=== PATIENT | female | born 1945 | race Two or more races ===

== ENCOUNTER 2016-10-29 12:47 | Inpatient (IN) | payer MEDICARE, MEDICAID ==
--- NOTE | 2016-10-29 12:56 | ER Document Report ---
ED Medical Screen (RME) - General Stated Complaint: WEAKNESS ON RIGHT SIDE Notes: 71 yo female brought to ED by daughter for limping and right sided weakness. pt has hx/o brain tumor, DM, hypothyroid, high cholesterol. Last time normal 2100 last night. no facial droop. + right sided weakness. + hx/o stroke. no chest pain. no shortness of breath. no headache TRAVEL OUTSIDE OF THE [place] IN LAST 30 DAYS: No - Related Data Allergies/Adverse Reactions: No Known Allergies Allergy (Verified 10/29/16 12:55)
[2016-10-29 13:49] LABS: ABSOLUTE BASOPHILS # (AUTO) 0.1 10^3/uL (0.0-0.2); ABSOLUTE EOSINOPHILS # (AUTO) 0.1 10^3/uL (0.0-0.6); ABSOLUTE LYMPHOCYTES (AUTO) 1.7 10^3/uL (0.5-4.7); ABSOLUTE MONOCYTES (AUTO) 0.7 10^3/uL (0.1-1.4); ABSOLUTE NEUT (AUTO) 5.7 10^3/uL (1.7-8.2); BASOPHILS % (AUTO) 0.7 % (0-2); EOSINOPHILS % (AUTO) 1.7 % (0-6); HEMATOCRIT 45.7 % (36.0-47.0); HEMOGLOBIN 15.8 g/dL (12.0-15.5); HGB HCT DIFFERENCE 1.7; LYMPHOCYTES % (AUTO) 20.2 % (13-45); MEAN CORPUSCULAR HEMOGLOBIN 31.6 pg (27.0-33.4); MEAN CORPUSCULAR HGB CONC 34.7 g/dL (32.0-36.0); MEAN CORPUSCULAR VOLUME 91 fl (80-97); RED BLOOD COUNT 5.01 10^6/uL (3.72-5.28); RED CELL DISTRIBUTION WIDTH 13.2 % (11.5-14.0); SEGMENTED NEUTROPHILS % (AUTO) 69.4 % (42-78); WHITE BLOOD COUNT 8.2 10^3/uL (4.0-10.5)
[2016-10-29 14:05] LABS: ALANINE AMINOTRANSFERASE 34 U/L (9-52); ALBUMIN 4.8 g/dL (3.5-5.0); ALKALINE PHOSPHATASE 74 U/L (38-126); ANION GAP 14 (5-19); ASPARTATE AMINO TRANSFERASE 17 U/L (14-36); BILIRUBIN,TOTAL 0.6 mg/dL (0.2-1.3); BLOOD UREA NITROGEN 10 mg/dL (7-20); CALCIUM 10.2 mg/dL (8.4-10.2); CARBON DIOXIDE 28 mmol/L (22-30); CHLORIDE 101 mmol/L (98-107); CREATINE KINASE 26 U/L (30-135); CREATININE RESULT 0.57 mg/dL (0.52-1.25); GLUCOSE 249 mg/dL (75-110); POTASSIUM 4.9 mmol/L (3.6-5.0); SODIUM 143.2 mmol/L (137-145); TOTAL PROTEIN 7.7 g/dL (6.3-8.2)
--- NOTE | 2016-10-29 14:07 | ER Document Report ---
ED General - General Chief Complaint: Weakness Stated Complaint: WEAKNESS ON RIGHT SIDE Time seen by provider: 13:40 Mode of Arrival: Wheelchair Information source: Patient, Relative Notes: 71-year-old female was evaluated with assistance of daughter who speaks excellent Vietnamese the patient would have difficulty cooperating with the rest route sales specialist due to confusion. Daughter reports patient has had weakness to the right lower extremity and right upper extremity with an inability to stand beginning last night. He reports patient has had no change in her speech. She reports the patient has a history of a brain tumor with residual drooping to the right face and dilated right pupil those findings are not new in the patient. The patient according to daughter was evaluated by [facility] for brain tumor in August and the personnel there were going to discuss her case to get back to her but they have not yet done so. The patient arrives with an MRI on disc from [facility] and notes on that indicate that the patient was evaluated there for dizziness and blurry vision but that the symptoms had resolved at this time she was evaluated there. She has a documented neuro exam with no numbness weakness to any extremity on that visit. Daughter reports the patient has otherwise been in usual state of health recently Physical Exam: General: Alert, appears well. HEENT: Normocephalic. Atraumatic. Right pupil 4 mm round minimally reactive left pupil is 3 mm round and reactive to sharp no papilledema sclerae anicteric. Extraocular movements intact. Oropharynx clear. Neck: Supple. Non-tender. No JVD no nuchal rigidity Respiratory: No respiratory distress. Clear and equal breath sounds bilaterally. Cardiovascular: Regular rate and rhythm. PMI not displaced Abdominal: Normal Inspection. Soft, non-tender. No distension. Normal Bowel Sounds. Back: Non-tender. No deformity or step off. Extremities: No gross deformity to extremities all warm with 2+ pulses and brisk cap refill no Homans sign Neurological: Patient is drooping to the right upper face. Tongue protrusion is midline no other cranial nerve deficits are appreciated. Communications Instructor strength is 5 out of 5 and equal in both upper extremity. Motor function is 5 out of 5 to left lower extremity compared to 3 out of 5 to the right lower extremity. Psychological: Normal affect. Normal Mood. Skin: Warm. Dry. Normal color.m TRAVEL OUTSIDE OF THE [place] 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 Patient also had an admission in May 2015 for CVA and had no residual deficits from that. This was in [place]. Review of Systems - Review of Systems Constitutional: denies: Chills, Fever EENT: denies: Ear pain, Throat pain Cardiovascular: denies: Chest pain Respiratory: denies: Cough, Short of breath Gastrointestinal: denies: Abdominal pain, Nausea, Vomiting Genitourinary: denies: Burning, Dysuria Musculoskeletal: denies: Back pain Hematologic/Lymphatic: denies: Swollen glands Neurological/Psychological: Weakness Physical Exam - Vital signs Vitals: Temp Pulse Resp BP Pulse Ox 98.4 F 90 13 156/69 H 100 10/29/16 12:50 10/29/16 12:50 10/29/16 12:50 10/29/16 12:50 10/29/16 12:50 Course - Re-evaluation Re-evalutation: 10/29/16 14:48 Patient reevaluated and again has 3-5 motor dysfunction to the right lower extremity compared to 5 out of 5 on the left and intact motor function both upper extremities. Right facial droop is unchanged. CT findings show nothing acute they do note the old right parietal postsurgical changes. I believe the patient's had an ischemic CVA and she was given full dose aspirin for that and consult with hospitalist for admission - Vital Signs Vital signs: Temp Pulse Resp BP Pulse Ox 98.4 F 90 13 156/69 H 100 10/29/16 12:50 10/29/16 12:50 10/29/16 12:50 10/29/16 12:50 10/29/16 12:50 - Laboratory Result Diagrams: 10/29/16 13:25 10/29/16 13:25 Laboratory results interpreted by me: 10/29/16 10/29/16 10/29/16 13:25 13:25 13:40 Hgb 15.8 H Glucose 249 H Creatine Kinase 26 L Urine Glucose (UA) >=500 H Urine Ketones TRACE H Urine Ascorbic Acid 40 H - Diagnostic Test Radiology reviewed: Reports reviewed - EKG Interpretation by Me Additional EKG results interpreted by me: 10/29/16 14:08 EKG reviewed by myself sinus rhythm at 83 no acute changes Discharge - Discharge Clinical Impression: CVA (cerebral vascular accident) Qualifiers: CVA mechanism: unspecified Qualified Code(s): I63.9 - Cerebral infarction, unspecified Condition: Fair Disposition: ADMITTED INPATIENT Admitting Provider: Hospitalist Unit Admitted: Telemetry
[2016-10-29 14:13] LABS: APPEARANCE,URINE CLEAR; BILIRUBIN,URINE NEGATIVE (NEGATIVE); GLUCOSE, URINE >=500 mg/dL (NEGATIVE); KETONES,URINE TRACE mg/dL (NEGATIVE); LEUKOCYTE ESTERASE,URINE NEGATIVE (NEGATIVE); NITRITE,URINE NEGATIVE (NEGATIVE); PROTEIN,URINE NEGATIVE (NEGATIVE); URINE SPECIFIC GRAVITY 1.013; UROBILINOGEN,URINE NEGATIVE mg/dL (<2.0)
[2016-10-29 14:17] LABS: CREATINE KINASE MB 0.69 ng/mL (<4.55)
[2016-10-29 14:18] LABS: TROPONIN I < 0.012 ng/mL
[2016-10-29] MEDS ORDERED: ASPIRIN 325 MG TABLET PO ONE (14:45)
[2016-10-29] MEDS ORDERED: ACETAMINOPHEN 325 MG TABLET PO PRN (15:29)
[2016-10-29] MEDS ORDERED: ONDANSETRON HCL INJ/PF 4 MG/2 ML SDV IV PRN (15:29)
[2016-10-29] MEDS ORDERED: DEXTROSE 50%-WATER 25 GM/50 ML DISP.SYRIN IV PRN ×2 (16:08)
[2016-10-29] MEDS ORDERED: DEXTROSE 40% GEL 15 GM TUBE PO PRN ×2 (16:08)
[2016-10-29] MEDS ORDERED: GLUCAGON,HUMAN RECOMB 1 MG INJ IM PRN (16:08)
[2016-10-29] MEDS ORDERED: ENOXAPARIN SODIUM INJ 40 MG/0.4 ML DISP.SYRIN SUBCUT ONE (17:00)
--- NOTE | 2016-10-29 17:58 | PDOC H&P ---
History of Present Illness Admission Date/PCP: CRISTIN GARVIN Patient complains of: Right leg weakness History of Present Illness: BRAD MTZ is a 71 year old female who has a history of a benign brain tumor surgically removed 25 years ago from her right sikh area who presents with right leg weakness. The patient is a Macanese who is here with her daughter and both speak Ecuadorean well. The patient reports that yesterday evening around 9 PM she was having difficulty ambulating. She went to bed and when she woke up this morning she was still weak in her right leg. Patient denies any right arm weakness. There was some questionable weakness in her right arm according to the daughter, however the patient denies it. She also has had some dysarthria. The patient has a history of a benign brain tumor removal 25 years ago. Patient has a chronically dilated right pupil because of this. The patient also has had problems with decreased memory and rambling speech that has gotten progressively worse over the last year according to the daughter. The patient is alert and oriented 3 however she is slow to answer questions and does have tangential thinking. Past Medical History Cardiac Medical History: Reports: Hyperlipidema, Hypertension Pulmonary Medical History: Reports: None EENT Medical History: Reports: None Neurological Medical History: Reports: Other - History of benign brain tumor removed 25 years ago from the right temporal area Endocrine Medical History: Reports: Diabetes Mellitus Type 2 Renal/ Medical History: Reports: None Malignancy Medical History: Reports: None GI Medical History: Reports: None Musculoskeltal Medical History: Reports: None Skin Medical History: Reports: None Traumatic Medical History: Reports: None Hematology: Reports: None Infectious Medical History: Reports: None Past Surgical History Past Surgical History: Reports: Other - History of right craniotomy for a benign brain tumor 25 years ago. Social History Information Source: Patient Lives with: Family Smoking Status: Never Smoker Frequency of Alcohol Use: None Hx Recreational Drug Use: No Drugs: None - Advance Directive Resuscitation Status: Do Not Resuscitate Family History Family History: DM, Hypertension Family History: Mother at age 26 from unspecified causes. Father in his 70s from throat cancer. Parental Family History Reviewed: Yes Children Family History Reviewed: No Sibling(s) Family History Reviewed.: No Medication/Allergy Allergies/Adverse Reactions: No Known Allergies Allergy (Verified 10/29/16 12:55) Review of Systems Constitutional: ABSENT: chills, fever(s), headache(s), weight gain, weight loss Eyes: PRESENT: other - Chronically dilated right pupil. ABSENT: visual disturbances Ears: ABSENT: hearing changes Cardiovascular: ABSENT: chest pain, dyspnea on exertion, edema, orthropnea, palpitations Respiratory: ABSENT: cough, hemoptysis Gastrointestinal: ABSENT: abdominal pain, constipation, diarrhea, hematemesis, hematochezia, nausea, vomiting Genitourinary: ABSENT: dysuria, hematuria Musculoskeletal: ABSENT: joint swelling Integumentary: ABSENT: rash, wounds Neurological: PRESENT: abnormal speech, memory loss, weakness - Right leg weakness Psychiatric: PRESENT: other - Tangential speech Endocrine: ABSENT: cold intolerance, heat intolerance, polydipsia, polyuria Hematologic/Lymphatic: ABSENT: easy bleeding, easy bruising Physical Exam Vital Signs: Temp Pulse Resp BP Pulse Ox 98.4 F 90 13 156/69 H 100 10/29/16 12:50 10/29/16 12:50 10/29/16 12:50 10/29/16 12:50 10/29/16 12:50 Intake & Output 10/28/16 10/29/16 10/30/16 06:59 06:59 06:59 Weight 53 kg General appearance: PRESENT: no acute distress Head exam: PRESENT: atraumatic, normocephalic Eye exam: PRESENT: conjunctiva pink, EOMI, PERRLA. ABSENT: scleral icterus Ear exam: PRESENT: normal external ear exam Mouth exam: PRESENT: moist, tongue midline Neck exam: ABSENT: carotid bruit, JVD, lymphadenopathy, thyromegaly Respiratory exam: PRESENT: clear to auscultation yue. ABSENT: rales, rhonchi, wheezes Cardiovascular exam: PRESENT: RRR. ABSENT: diastolic murmur, rubs, systolic murmur Pulses: PRESENT: normal dorsalis pedis pul Vascular exam: PRESENT: normal capillary refill GI/Abdominal exam: PRESENT: normal bowel sounds, soft. ABSENT: distended, guarding, mass, organolmegaly, rebound, tenderness Rectal exam: PRESENT: deferred Extremities exam: ABSENT: calf tenderness, clubbing, pedal edema Neurological exam: PRESENT: alert, awake, oriented to person, oriented to place , oriented to time, oriented to situation, CN II-XII grossly intact - Patient has dilated right pupil, other - Patient's right leg shows 4 out of 5 strength. Psychiatric exam: PRESENT: other - Tangential thinking Skin exam: PRESENT: dry, intact, warm. ABSENT: cyanosis, rash Results Laboratory Results: 10/29/16 13:25 10/29/16 13:25 10/29/16 10/29/16 10/29/16 13:25 13:25 13:40 WBC 8.2 RBC 5.01 Hgb 15.8 H Hct 45.7 MCV 91 MCH 31.6 MCHC 34.7 RDW 13.2 Plt Count 273 Seg Neutrophils % 69.4 Lymphocytes % 20.2 Monocytes % 8.0 Eosinophils % 1.7 Basophils % 0.7 Absolute Neutrophils 5.7 Absolute Lymphocytes 1.7 Absolute Monocytes 0.7 Absolute Eosinophils 0.1 Absolute Basophils 0.1 Sodium 143.2 Potassium 4.9 Chloride 101 Carbon Dioxide 28 Anion Gap 14 BUN 10 Creatinine 0.57 Est GFR ( Amer) > 60 Est GFR (Non-Af Amer) > 60 Glucose 249 H Calcium 10.2 Total Bilirubin 0.6 AST 17 ALT 34 Alkaline Phosphatase 74 Total Protein 7.7 Albumin 4.8 Urine Color YELLOW Urine Appearance CLEAR Urine pH 5.0 Ur Specific [place] 1.013 Urine Protein NEGATIVE Urine Glucose (UA) >=500 H Urine Ketones TRACE H Urine Blood NEGATIVE Urine Nitrite NEGATIVE Ur Leukocyte Esterase NEGATIVE Urine WBC (Auto) 1 Urine RBC (Auto) 3 10/29/16 10/29/16 13:25 13:25 Creatine Kinase 26 L CK-MB (CK-2) 0.69 Troponin I < 0.012 Impressions: Head CT 10/29/16 12:58 IMPRESSION: 1. Right temporal postoperative changes. 2. Mild chronic atrophy and small vessel disease. 3. No acute abnormality. Chest X-Ray 10/29/16 12:59 IMPRESSION: LOW LUNG VOLUMES. NO SIGNIFICANT RADIOGRAPHIC FINDING IN THE CHEST. Assessment & Plan - Diagnosis (1) CVA (cerebral vascular accident) Qualifiers: CVA mechanism: unspecified Qualified Code(s): I63.9 - Cerebral infarction, unspecified Is this a current diagnosis for this admission?: YesPlan: She has right leg weakness suspicious for an acute CVA. The patient had a head CT that was unremarkable. We will admit the patient and obtain an MRI, carotid Doppler, echocardiogram. Patient's right leg is slightly cooler to touch than the left leg but does have good capillary refill. The patient does have a history of having a right temporal brain tumor removed 25 years ago. The patient has not been on aspirin and we will start the patient on aspirin 81 mg daily. (2) Hyperlipidemia Is this a current diagnosis for this admission?: Yes (3) Hypothyroidism Is this a current diagnosis for this admission?: YesPlan: We'll continue with her outpatient Synthroid dose. (4) Diabetes mellitus Is this a current diagnosis for this admission?: YesPlan: We'll cover with sliding scale insulin. (5) Hypertension Is this a current diagnosis for this admission?: Yes - Time Time Spent: 50 to 70 Minutes
[2016-10-29] MEDS: INSULIN REG, HUMAN 100 UNIT/ML 3 ML VIAL (PYX) SUBCUT PRN ×2 (18:59→23:39)
--- NOTE | 2016-10-29 21:37 | EKG REPORT ---
SEVERITY:- ABNORMAL ECG - SINUS RHYTHM LEFT VENTRICULAR HYPERTROPHY : Confirmed by: Deny Blair 29-Oct-2016 21:36:50
[2016-10-29] MEDS: FAMOTIDINE 20 MG TABLET PO SCH (22:35)
[2016-10-29] MEDS: ATORVASTATIN CALCIUM 40 MG TABLET PO SCH (22:35)
[2016-10-30] MEDS: NORMAL SALINE 1000 ML 1,000 ML IV PRN ×3 (03:42→23:06)
[2016-10-30 05:00] LABS: HEMATOCRIT 39.9 % (36.0-47.0); HGB HCT DIFFERENCE 0.9; MEAN CORPUSCULAR HEMOGLOBIN 31.4 pg (27.0-33.4); MEAN CORPUSCULAR HGB CONC 34.1 g/dL (32.0-36.0); MEAN CORPUSCULAR VOLUME 92 fl (80-97); RED BLOOD COUNT 4.33 10^6/uL (3.72-5.28); RED CELL DISTRIBUTION WIDTH 13.2 % (11.5-14.0)
[2016-10-30 05:09] LABS: HEMOGLOBIN 13.6 g/dL (12.0-15.5)
[2016-10-30 05:14] LABS: ANION GAP 12 (5-19); BLOOD UREA NITROGEN 8 mg/dL (7-20); CALCIUM 9.2 mg/dL (8.4-10.2); CARBON DIOXIDE 28 mmol/L (22-30); CHLORIDE 106 mmol/L (98-107); GLUCOSE 107 mg/dL (75-110); POTASSIUM 4.1 mmol/L (3.6-5.0); SODIUM 145.5 mmol/L (137-145)
--- NOTE | 2016-10-30 09:41 | PDOC PROGRESS REPORT ---
Subjective Progress Note for:: 10/30/16 Subjective:: Continues to have right leg weakness. Physical Exam Vital Signs: Temp Pulse Resp BP Pulse Ox 97.9 F 75 18 119/64 98 10/30/16 07:26 10/30/16 08:00 10/30/16 08:00 10/30/16 08:00 10/30/16 08:00 Intake & Output 10/29/16 10/30/16 10/31/16 06:59 06:59 06:59 Intake Total 1774 Output Total 0 Balance 1774 Weight 53 kg General appearance: PRESENT: no acute distress Eye exam: PRESENT: conjunctiva pink Mouth exam: PRESENT: moist, tongue midline Neck exam: ABSENT: JVD Respiratory exam: PRESENT: clear to auscultation yue. ABSENT: rales, rhonchi, wheezes Cardiovascular exam: PRESENT: RRR. ABSENT: diastolic murmur, rubs, systolic murmur GI/Abdominal exam: PRESENT: normal bowel sounds, soft. ABSENT: distended, guarding, mass, organolmegaly, rebound, tenderness Extremities exam: ABSENT: calf tenderness, clubbing, pedal edema Neurological exam: PRESENT: alert, awake, oriented to person, oriented to place , oriented to time, oriented to situation, CN II-XII grossly intact, other - Right leg strength 4 out of 5. Psychiatric exam: PRESENT: unusual affect Skin exam: PRESENT: dry, intact, warm. ABSENT: cyanosis, rash Results Laboratory Results: 10/30/16 03:58 10/30/16 03:58 10/30/16 10/30/16 03:58 03:58 WBC 7.0 RBC 4.33 Hgb 13.6 D Hct 39.9 MCV 92 MCH 31.4 MCHC 34.1 RDW 13.2 Plt Count 239 Sodium 145.5 H Potassium 4.1 Chloride 106 Carbon Dioxide 28 Anion Gap 12 BUN 8 Creatinine 0.60 Est GFR ( Amer) > 60 Est GFR (Non-Af Amer) > 60 Glucose 107 Calcium 9.2 Impressions: Head MRI 10/29/16 00:00 IMPRESSION: 1. Acute, nonhemorrhagic lacunar type infarct left thalamus. 2. 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 Head CT 10/29/16 12:58 IMPRESSION: 1. Right temporal postoperative changes. 2. Mild chronic atrophy and small vessel disease. 3. No acute abnormality. Chest X-Ray 10/29/16 12:59 IMPRESSION: LOW LUNG VOLUMES. NO SIGNIFICANT RADIOGRAPHIC FINDING IN THE CHEST. Assessment & Plan - Diagnosis (1) CVA (cerebral vascular accident) Qualifiers: CVA mechanism: unspecified Qualified Code(s): I63.9 - Cerebral infarction, unspecified Is this a current diagnosis for this admission?: YesPlan: She has right leg weakness suspicious for an acute CVA. The patient had a head CT that was unremarkable. MRI shows a left thalamus infarction is acute. The patient does have a history of having a right temporal brain tumor removed 25 years ago. The patient has not been on aspirin and we will start the patient on aspirin 81 mg daily. Patient will get PT and OT. She will need referral for short-term rehabilitation as she lives in a two-story house and will need to be able to go up to the second floor to her bedroom. (2) Hyperlipidemia Is this a current diagnosis for this admission?: YesPlan: Continue with Lipitor. (3) Hypothyroidism Is this a current diagnosis for this admission?: YesPlan: We'll continue with her outpatient Synthroid dose. (4) Diabetes mellitus Is this a current diagnosis for this admission?: YesPlan: We'll cover with sliding scale insulin. (5) Hypertension Is this a current diagnosis for this admission?: YesPlan: Blood pressure is stable without medications at this time. - Time Time Spent with patient: 25-34 minutes - Inpatient Certification Medical Necessity: Need for Neurological Checks - Plan Summary Plan Summary: We are waiting carotid Doppler results. The patient will need to go to short- term nursing facility for rehabilitation.
[2016-10-30] MEDS: ENOXAPARIN SODIUM INJ 40 MG/0.4 ML DISP.SYRIN SUBCUT SCH (10:01)
[2016-10-30] MEDS: FAMOTIDINE 20 MG TABLET PO SCH ×2 (10:02→21:06)
[2016-10-30] MEDS: ASPIRIN 81 MG TABLET, ENT COATED PO SCH (10:02)
[2016-10-30] MEDS: LEVOTHYROXINE SODIUM 0.025 MG TABLET PO SCH (10:02)
[2016-10-30] MEDS: INSULIN REG, HUMAN 100 UNIT/ML 3 ML VIAL (PYX) SUBCUT PRN ×2 (12:30→21:21)
--- NOTE | 2016-10-30 13:27 | XCELERA REPORT ---
[address] [address] Transthoracic Echocardiogram Report Name: BRAD MTZ Age: 71 yrs Gender: Female : 1945 Patient Status: Inpatient Patient Location: [id number]\307\[id number]\A Study Date: 10/30/2016 08:59 AM Procedure: A complete two-dimensional transthoracic echocardiogram was performed (2D, M-mode, spectral and color flow Doppler). The study was technically adequate with some images being suboptimal in quality. Reason For Study: cva Ordering Physician: SHAKIR ZHAO Performed By: Clint Burr Interpretation Summary The left ventricular ejection fraction is normal. There is borderline concentric left ventricular hypertrophy. The left ventricle is grossly normal size. Doppler measurements suggest pseudonormalized left ventricular relaxation, which is associated with grade II/IV or mild to moderate diastolic dysfunction Wall motion cannot be accurately commented on, but no definite regional wall motion abnormalities noted. The right ventricular systolic function is normal. The right atrium is normal. The left atrial size is normal. There is no mitral valve stenosis. There is a trace amount of mitral regurgitation There is no aortic valve stenosis No aortic regurgitation is present. There is no tricuspid stenosis. There is a trace to mild amount of tricuspid regurgitation The aortic root is not well visualized. The inferior vena cava appeared normal and decreased > 50% with respiration (RAP 5-10 mmHg) Minimal pericardial effusion. May consider mobile cardiac telemetry monitoring (MCT) for ruling out transient AFIB. Consider MICAELA if clinically indicated. MMode/2D Measurements \T\ Calculations RVDd: 1.6 cm LVIDd: 4.4 cm FS: 25.7 % Ao root diam: 2.6 cm IVSd: 0.69 cm LVIDs: 3.3 cm EDV(Teich): 87.7 ml Ao root area: 5.5 cm2 LVPWd: 0.81 cm ESV(Teich): 43.2 ml LA dimension: 3.0 cm EF(Teich): 50.7 % Doppler Measurements \T\ Calculations MV E max henry: MV P1/2t max henry: Ao V2 max: LV V1 max P.1 cm/sec 86.4 cm/sec 112.9 cm/sec 1.7 mmHg MV A max henry: MV P1/2t: 56.3 msec Ao max PG: LV V1 max: 99.2 cm/sec MVA(P1/2t): 3.9 cm2 5.1 mmHg 65.8 cm/sec MV E/A: 0.72 MV dec slope: 449.1 cm/sec2 MV dec time: 0.20 sec PA V2 max: TR max henry: RAP systole: 88.8 cm/sec 243.2 cm/sec 10.0 mmHg PA max PG: TR max P.7 mmHg 3.2 mmHg RVSP(TR): 33.7 mmHg Left Ventricle The left ventricle is grossly normal size. There is borderline concentric left ventricular hypertrophy. The left ventricular ejection fraction is normal. Doppler measurements suggest pseudonormalized left ventricular relaxation, which is associated with grade II/IV or mild to moderate diastolic dysfunction. Wall motion cannot be accurately commented on, but no definite regional wall motion abnormalities noted. Right Ventricle The right ventricle is grossly normal size. There is normal right ventricular wall thickness. The right ventricular systolic function is normal. Atria The right atrium is normal. The left atrial size is normal. Interarterial septum not well visualized and not well dopplered. Cannot comment on ASD/PFO presence. Mitral Valve The mitral valve is grossly normal. There is no mitral valve stenosis. There is a trace amount of mitral regurgitation. Aortic Valve The aortic valve is grossly normal. There is no aortic valve stenosis. No aortic regurgitation is present. Tricuspid Valve The tricuspid valve is not well visualized, but is grossly normal. There is no tricuspid stenosis. There is a trace to mild amount of tricuspid regurgitation. Pulmonic Valve The pulmonic valve is not well visualized. Great Vessels The aortic root is not well visualized. The inferior vena cava appeared normal and decreased > 50% with respiration (RAP 5-10 mmHg). Effusions Minimal pericardial effusion. Incidental Findings No definite cardiac source of CVA/TIA noted on this particular trans- thoracic study. May consider mobile cardiac telemetry monitoring (MCT) for ruling out transient AFIB. Consider MICAELA if clinically indicated. : SHAKIR ZHAO > Deny Blair
[2016-10-30] MEDS: ATORVASTATIN CALCIUM 40 MG TABLET PO SCH (21:06)
[2016-10-31] MEDS: NORMAL SALINE 1000 ML 1,000 ML IV PRN (03:29)
[2016-10-31 05:00] LABS: ABSOLUTE BASOPHILS # (AUTO) 0.1 10^3/uL (0.0-0.2); ABSOLUTE EOSINOPHILS # (AUTO) 0.2 10^3/uL (0.0-0.6); ABSOLUTE LYMPHOCYTES (AUTO) 2.1 10^3/uL (0.5-4.7); ABSOLUTE MONOCYTES (AUTO) 0.6 10^3/uL (0.1-1.4); EOSINOPHILS % (AUTO) 3.3 % (0-6); HEMOGLOBIN 14.7 g/dL (12.0-15.5); HGB HCT DIFFERENCE 1.1; LYMPHOCYTES % (AUTO) 29.9 % (13-45); MEAN CORPUSCULAR HEMOGLOBIN 31.3 pg (27.0-33.4); MEAN CORPUSCULAR HGB CONC 34.2 g/dL (32.0-36.0); MEAN CORPUSCULAR VOLUME 92 fl (80-97); RED CELL DISTRIBUTION WIDTH 13.4 % (11.5-14.0); SEGMENTED NEUTROPHILS % (AUTO) 57.8 % (42-78); WHITE BLOOD COUNT 6.9 10^3/uL (4.0-10.5)
[2016-10-31 05:34] LABS: ANION GAP 11 (5-19); BLOOD UREA NITROGEN 5 mg/dL (7-20); CALCIUM 9.1 mg/dL (8.4-10.2); CARBON DIOXIDE 25 mmol/L (22-30); CHLORIDE 109 mmol/L (98-107); CREATININE RESULT 0.54 mg/dL (0.52-1.25); GLUCOSE 138 mg/dL (75-110); POTASSIUM 4.1 mmol/L (3.6-5.0)
[2016-10-31] MEDS: INSULIN REG, HUMAN 100 UNIT/ML 3 ML VIAL (PYX) SUBCUT PRN ×3 (09:37→23:20)
[2016-10-31] MEDS: FAMOTIDINE 20 MG TABLET PO SCH ×2 (09:38→21:36)
[2016-10-31] MEDS: ENOXAPARIN SODIUM INJ 40 MG/0.4 ML DISP.SYRIN SUBCUT SCH (09:38)
[2016-10-31] MEDS: ASPIRIN 81 MG TABLET, ENT COATED PO SCH (09:38)
[2016-10-31] MEDS: LEVOTHYROXINE SODIUM 0.025 MG TABLET PO SCH (09:39)
--- NOTE | 2016-10-31 16:33 | PDOC PROGRESS REPORT ---
Subjective Progress Note for:: 10/31/16 Subjective:: Patient reports feeling better. Able to ambulate around with physical therapy. Strength is better. No chest pain or shortness of breath. No chills or fever. Physical Exam Vital Signs: Temp Pulse Resp BP Pulse Ox 98.3 F 73 16 116/56 L 99 10/31/16 15:34 10/31/16 15:34 10/31/16 15:34 10/31/16 15:34 10/31/16 15:34 Intake & Output 10/30/16 10/31/16 11/01/16 06:59 06:59 06:59 Intake Total 1774 6808 Output Total 0 1200 Balance 1774 5608 Weight 53 kg 55.4 kg General appearance: PRESENT: no acute distress, cooperative Head exam: PRESENT: normocephalic Eye exam: PRESENT: EOMI Mouth exam: PRESENT: moist, neck supple Neck exam: ABSENT: JVD Respiratory exam: PRESENT: clear to auscultation yue. ABSENT: rhonchi, wheezes Cardiovascular exam: PRESENT: RRR. ABSENT: gallop GI/Abdominal exam: PRESENT: normal bowel sounds, soft. ABSENT: distended, tenderness Extremities exam: ABSENT: pedal edema Neurological exam: PRESENT: alert, awake, oriented to situation, motor sensory deficit - More noticeable on the right lower extremity, other - Slurring of speech Psychiatric exam: PRESENT: normal mood Skin exam: PRESENT: dry, warm. ABSENT: cyanosis Results Laboratory Results: 10/31/16 04:09 10/31/16 04:09 10/31/16 10/31/16 04:09 04:09 WBC 6.9 RBC 4.70 Hgb 14.7 Hct 43.0 MCV 92 MCH 31.3 MCHC 34.2 RDW 13.4 Plt Count 231 Seg Neutrophils % 57.8 Lymphocytes % 29.9 Monocytes % 8.0 Eosinophils % 3.3 Basophils % 1.0 Absolute Neutrophils 4.0 Absolute Lymphocytes 2.1 Absolute Monocytes 0.6 Absolute Eosinophils 0.2 Absolute Basophils 0.1 Sodium 145.0 Potassium 4.1 Chloride 109 H Carbon Dioxide 25 Anion Gap 11 BUN 5 L Creatinine 0.54 Est GFR ( Amer) > 60 Est GFR (Non-Af Amer) > 60 Glucose 138 H Calcium 9.1 Impressions: Head MRI 10/29/16 00:00 IMPRESSION: 1. Acute, nonhemorrhagic lacunar type infarct left thalamus. 2. 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 Head CT 10/29/16 12:58 IMPRESSION: 1. Right temporal postoperative changes. 2. Mild chronic atrophy and small vessel disease. 3. No acute abnormality. Chest X-Ray 10/29/16 12:59 IMPRESSION: LOW LUNG VOLUMES. NO SIGNIFICANT RADIOGRAPHIC FINDING IN THE CHEST. Carotid Doppler Study 10/30/16 00:00 IMPRESSION: BILATERAL PLAQUE. NO HEMODYNAMICALLY SIGNIFICANT STENOSIS. Assessment & Plan - Diagnosis (1) CVA (cerebral vascular accident) Qualifiers: CVA mechanism: unspecified Qualified Code(s): I63.9 - Cerebral infarction, unspecified Is this a current diagnosis for this admission?: Yes (2) Diabetes mellitus Qualifiers: Diabetes mellitus type: type 2 Diabetes mellitus complication status: with unspecified complications Diabetes mellitus termite inspector insulin use: without fdc use Qualified Code(s): E11.8 - Type 2 diabetes mellitus with unspecified complications; Z79.4 - termite inspector (current) use of insulin Is this a current diagnosis for this admission?: Yes (3) Hyperlipidemia Qualifiers: Hyperlipidemia type: unspecified Qualified Code(s): E78.5 - Hyperlipidemia, unspecified Is this a current diagnosis for this admission?: Yes (4) Hypertension Qualifiers: Hypertension type: essential hypertension Qualified Code(s): I10 - Essential (primary) hypertension Is this a current diagnosis for this admission?: Yes (5) Hypothyroidism Qualifiers: Hypothyroidism type: acquired Qualified Code(s): E03.9 - Hypothyroidism, unspecified Is this a current diagnosis for this admission?: Yes (6) extracranial mass Is this a current diagnosis for this admission?: Yes - Time Time Spent with patient: 25-34 minutes Anticipated discharge: SNF Within: within 48 hours - Plan Summary Plan Summary: We will check hemoglobin A1c and fasting lipid panel. Continue antiplatelet therapy but changed aspirin to Aggrenox due to carotid plaques. Continue physical therapy. Awaiting a rehabilitation bed.
[2016-10-31] MEDS: ASPIRIN/DIPYRIDAMOLE 25-200 MG 1 CAP.SR CPMP.12HR PO SCH (17:17)
[2016-10-31] MEDS: ATORVASTATIN CALCIUM 40 MG TABLET PO SCH (21:36)
[2016-11-01] MEDS: ASPIRIN/DIPYRIDAMOLE 25-200 MG 1 CAP.SR CPMP.12HR PO SCH ×2 (06:14→17:16)
[2016-11-01 07:48] LABS: CHOLESTEROL 142.88 mg/dL (0-200); DIRECT LDL 73 mg/dL (<100); Direct HDL 51 mg/dL (>40); TRIGLYCERIDES 78 mg/dL (<150); VLDL CHOLESTEROL 15.6 mg/dL (10-31)
[2016-11-01] MEDS: LEVOTHYROXINE SODIUM 0.025 MG TABLET PO SCH (10:04)
[2016-11-01] MEDS: FAMOTIDINE 20 MG TABLET PO SCH (10:04)
[2016-11-01] MEDS: ENOXAPARIN SODIUM INJ 40 MG/0.4 ML DISP.SYRIN SUBCUT SCH (10:20)
--- NOTE | 2016-11-01 11:26 | PDOC DISCHARGE SUMMARY ---
General - Admit/Disc Date/PCP Admission Date/Primary Care Provider: 10/29/16 15:29 CRISTIN GARVIN Discharge Date: 11/01/16 - Discharge Diagnosis (1) CVA (cerebral vascular accident) Is this a current diagnosis for this admission?: Yes (2) Diabetes mellitus Is this a current diagnosis for this admission?: Yes (3) Hyperlipidemia Is this a current diagnosis for this admission?: Yes (4) Hypertension Is this a current diagnosis for this admission?: Yes (5) Hypothyroidism Is this a current diagnosis for this admission?: Yes (6) extracranial mass Is this a current diagnosis for this admission?: Yes - Additional Information Resuscitation Status: Do Not Resuscitate Discharge Diet: Cardiac - low-fat low-salt, Diabetic - no concentrated sweets Discharge Activity: Activity As Tolerated, Balance Activity w/Rest Home Medications: Levothyroxine Sodium 1 tab PO DAILY 10/29/16 Linagliptin/Metformin HCl [Jentadueto 2.5 mg-1000 mg Tab] 1 tab PO DAILY Lisinopril 1 tab PO DAILY 10/29/16 Aspirin/Dipyridamole [Aggrenox 25 mg/200 mg Capsule SA] 1 cap.sr PO Q12A cpmp.12hr 11/01/16 Atorvastatin Calcium [Lipitor 40 mg Tablet] 40 mg PO QHS tablet 11/01/16 Famotidine [Pepcid 20 mg Tablet] 20 mg PO Q12 tablet 11/01/16 Insulin Regular, Human [Humulin R (Reg) Insulin 100 unit/mL] 0 - 12 unit SUBCUT ACHSP PRN unit 11/01/16 History of Present Illness Patient complains of: Right lower extremity weakness History of Present Illness: BRAD MTZ is a 71 year old female, with diabetes and hypertension as well as brain tumor requiring craniotomy years ago presents to the hospital with right-sided weakness on the lower extremity. There is no reported associated upper extremity weakness however there is some worsening speech difficulty that she had were a while. For details please refer to the H&P performed by the admitting physician. Hospital Course Hospital Course: The patient was admitted to [facility]. The patient was started on antiplatelet therapy. MRI of the brain was obtained showing lacunar infarction. Carotid ultrasound shows plaques but no significant stenosis. Antiplatelet therapy shifted to Aggrenox. 2-D echocardiogram did not reveal any significant valvular defect or septal defect. On the MRI however there was finding of an extra-axial mass. Patient was begun on physical therapy and was referred to [facility] for subacute rehabilitation. Her last oral medication dose was increased. In terms of the diabetes she was placed on sliding scale. Patient did fairly well with physical therapy and therefore when a bed was available she was transferred. In terms of the extra-axial mass the family was aware that a recent MRI performed in [facility] a finding was noted but they are unaware of what it is. It was likewise mention that the physician to discuss with the rest of the team regarding the finding and what treatment options are available. Family states they are going to call and communicate with them after the holidays. They were advised to see her neurosurgeon in [place] in the next 1-2 weeks. The rest of the hospital stay is unremarkable. Physical Exam Vital Signs: Temp Pulse Resp BP Pulse Ox 98.2 F 77 19 133/63 H 98 11/01/16 08:02 11/01/16 08:02 11/01/16 08:02 11/01/16 08:02 11/01/16 08:02 Intake & Output 10/31/16 11/01/16 11/02/16 06:59 06:59 06:59 Intake Total 6808 1263 Output Total 1200 Balance 5608 1263 Weight 55.4 kg 60 kg General appearance: PRESENT: no acute distress, cooperative Head exam: PRESENT: normocephalic Eye exam: PRESENT: conjunctiva pink. ABSENT: scleral icterus Mouth exam: PRESENT: moist, neck supple Neck exam: ABSENT: JVD Respiratory exam: PRESENT: clear to auscultation yue. ABSENT: rhonchi, wheezes Cardiovascular exam: PRESENT: RRR. ABSENT: gallop GI/Abdominal exam: PRESENT: normal bowel sounds, soft. ABSENT: distended, tenderness Extremities exam: ABSENT: pedal edema Neurological exam: PRESENT: other - 4+/5 on right upper and right lower extremity. Psychiatric exam: PRESENT: normal mood Skin exam: PRESENT: dry, warm. ABSENT: cyanosis Results Laboratory Results: 10/31/16 04:09 10/31/16 04:09 11/01/16 04:03 Triglycerides 78 Cholesterol 142.88 LDL Cholesterol Direct 73 VLDL Cholesterol 15.6 HDL Cholesterol 51 Impressions: Head MRI 10/29/16 00:00 IMPRESSION: 1. Acute, nonhemorrhagic lacunar type infarct left thalamus. 2. 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 Head CT 10/29/16 12:58 IMPRESSION: 1. Right temporal postoperative changes. 2. Mild chronic atrophy and small vessel disease. 3. No acute abnormality. Chest X-Ray 10/29/16 12:59 IMPRESSION: LOW LUNG VOLUMES. NO SIGNIFICANT RADIOGRAPHIC FINDING IN THE CHEST. Carotid Doppler Study 10/30/16 00:00 IMPRESSION: BILATERAL PLAQUE. NO HEMODYNAMICALLY SIGNIFICANT STENOSIS. Qualifiers PATEINT BEING DISCHARGED WITH ANY OF THE FOLLOWING DIAGNOSIS?: Stroke Stroke Pt being discharged on Anti-thrombolytic therapy?: No Reason(s) for not prescribing Anti-thrombolytic therapy:: Not indicated Stroke Pt being discharged on Anti-coagulation therapy?: Yes Stroke Pt being discharged on Statins?: Yes Plan Discharge Plan: Appointment with primary care physician in one week. Appointment with neurosurgery in [facility] in 1-2 weeks. Time Spent: Less than 30 Minutes
[2016-11-01] MEDS: INSULIN REG, HUMAN 100 UNIT/ML 3 ML VIAL (PYX) SUBCUT PRN (11:41)
[2016-11-01 16:04] VITALS: BP 124/72
== END 2016-11-01 19:15 | DRG 65 ==
LOC: ER 12:47 → EH 15:29 → UNDOADMIN 16:09 → 3N 18:11
PROVIDERS: ADMIT Internal Medicine; ATTEND Internal Medicine
DX: I63.8 Other cerebral infarction (principal); G81.91 Hemiplegia, unspecified affecting right dominant side; Z66 Do not resuscitate; R29.810 Facial weakness; E11.9 Type 2 diabetes mellitus without complications; E03.9 Hypothyroidism, unspecified; E78.5 Hyperlipidemia, unspecified; I10 Essential (primary) hypertension; R22.0 Localized swelling, mass and lump, head; Z86.011 Personal history of benign neoplasm of the brain
CPT/HCPCS: 36415; 70450; 70551; 71020; 80048; 80053; 80061; 81001; 82550; 82553; 82962; 83036; 84484; 85025; 85027; 93005; 93010; 93306; 93880; 99285; G8978-GP; G8979-GP; G8987-GO; G8988-GO; G8999-GN; G9158-GN; G9186-GN; J1650; J1815; J3490; J7030

== ENCOUNTER → 2016-11-13 | Outpatient (CLI) | payer MEDICARE, MEDICAID ==
[2016-11-13 12:54] LABS: APPEARANCE,URINE CLOUDY; BILIRUBIN,URINE NEGATIVE (NEGATIVE); GLUCOSE, URINE 50 mg/dL (NEGATIVE); KETONES,URINE NEGATIVE (NEGATIVE); LEUKOCYTE ESTERASE,URINE TRACE (NEGATIVE); NITRITE,URINE NEGATIVE (NEGATIVE); PROTEIN,URINE NEGATIVE (NEGATIVE); URINE SPECIFIC GRAVITY 1.006; UROBILINOGEN,URINE NEGATIVE mg/dL (<2.0)
== END ==
LOC: OD 11:44
PROVIDERS: ATTEND Internal Medicine
DX: R30.9 Painful micturition, unspecified (principal)
CPT/HCPCS: 81001; 87086

== ENCOUNTER 2016-11-23 20:02 | Emergency (ER) | payer MEDICARE, MEDICAID ==
[2016-11-23] MEDS ORDERED: ASPIRIN 81 MG TABLET, CHEWABLE PO ONE (21:45)
[2016-11-23 22:20] LABS: ABSOLUTE BASOPHILS # (AUTO) 0.1 10^3/uL (0.0-0.2); ABSOLUTE EOSINOPHILS # (AUTO) 0.3 10^3/uL (0.0-0.6); ABSOLUTE LYMPHOCYTES (AUTO) 2.4 10^3/uL (0.5-4.7); ABSOLUTE MONOCYTES (AUTO) 0.8 10^3/uL (0.1-1.4); ABSOLUTE NEUT (AUTO) 5.5 10^3/uL (1.7-8.2); BASOPHILS % (AUTO) 1.2 % (0-2); EOSINOPHILS % (AUTO) 2.9 % (0-6); HEMATOCRIT 39.6 % (36.0-47.0); HEMOGLOBIN 13.8 g/dL (12.0-15.5); HGB HCT DIFFERENCE 1.8; LYMPHOCYTES % (AUTO) 26.7 % (13-45); MEAN CORPUSCULAR HGB CONC 34.8 g/dL (32.0-36.0); MEAN CORPUSCULAR VOLUME 92 fl (80-97); MONOCYTES % (AUTO) 8.5 % (3-13); RED BLOOD COUNT 4.31 10^6/uL (3.72-5.28); RED CELL DISTRIBUTION WIDTH 13.3 % (11.5-14.0); SEGMENTED NEUTROPHILS % (AUTO) 60.7 % (42-78); WHITE BLOOD COUNT 9.1 10^3/uL (4.0-10.5)
[2016-11-23 22:38] LABS: ALANINE AMINOTRANSFERASE 29 U/L (9-52); ALBUMIN 3.9 g/dL (3.5-5.0); ALKALINE PHOSPHATASE 71 U/L (38-126); ANION GAP 9 (5-19); ASPARTATE AMINO TRANSFERASE 17 U/L (14-36); BILIRUBIN,TOTAL 0.5 mg/dL (0.2-1.3); BLOOD UREA NITROGEN 8 mg/dL (7-20); CALCIUM 9.9 mg/dL (8.4-10.2); CARBON DIOXIDE 30 mmol/L (22-30); CHLORIDE 102 mmol/L (98-107); CREATINE KINASE 23 U/L (30-135); CREATININE RESULT 0.67 mg/dL (0.52-1.25); GLUCOSE 198 mg/dL (75-110); POTASSIUM 4.7 mmol/L (3.6-5.0); SODIUM 141.3 mmol/L (137-145); TOTAL PROTEIN 6.8 g/dL (6.3-8.2)
[2016-11-23 22:50] LABS: CREATINE KINASE MB 0.26 ng/mL (<4.55); TROPONIN I < 0.012 ng/mL
--- NOTE | 2016-11-23 23:36 | ER Document Report ---
ED General - General Chief Complaint: Chest Pain Stated Complaint: CHEST PAIN Notes: Patient is a 71-year-old female with past medical history of CVA, hypertension and hyperlipidemia who presents from her senior care with a brief episode of chest pain. Does described as a burning, constant chest pain that has spontaneously resolved. It was moderate in nature and acute in onset. No history of similar symptoms in the past. She has no prior cardiac history. At time of my assessment she denies any complaints and states she feels completely fine. No history of DVT or pulmonary embolus. She denies any associated nausea , vomiting or diaphoresis. No shortness of breath. Nothing worsens or improves her symptoms. She was sent by her senior care staff but has not spoken to her physician regarding today's concerns. TRAVEL OUTSIDE OF THE [place] IN LAST 30 DAYS: No - Related Data Allergies/Adverse Reactions: No Known Allergies Allergy (Verified 10/29/16 12:55) Past Medical History - General Information source: Patient - Social History Smoking Status: Never Smoker Frequency of alcohol use: None Drug Abuse: None Lives with: Senior Care Family History: DM, Hypertension - Past Medical History Cardiac Medical History: Reports: Hx Hypercholesterolemia, Hx Hypertension Endocrine Medical History: Reports: Hx Diabetes Mellitus Type 2 Psychiatric Medical History: Reports: Hx Depression Past Surgical History: Reports: Other - History of right craniotomy for a benign brain tumor 25 years ago. Review of Systems - Review of Systems Notes: Constitutional: Negative for fever. HENT: Negative for sore throat. Eyes: Negative for visual changes. Cardiovascular: Positive for chest pain. Respiratory: Negative for shortness of breath. Gastrointestinal: Negative for abdominal pain, vomiting or diarrhea. Genitourinary: Negative for dysuria. Musculoskeletal: Negative for back pain. Skin: Negative for rash. Neurological: Negative for headaches, weakness or numbness. 10 point ROS negative except as marked above and in HPI. Physical Exam - Vital signs Vitals: Resp Pulse Ox 13 98 11/23/16 20:23 11/23/16 20:23 Interpretation: Normal Notes: PHYSICAL EXAMINATION: GENERAL: Appears older than stated age. In no acute distress. HEAD: Atraumatic, normocephalic. EYES: Pupils equal round and reactive to light, extraocular movements intact, sclera anicteric, conjunctiva are normal. ENT: nares patent, oropharynx clear without exudates. Moist mucous membranes. NECK: Normal range of motion, supple without lymphadenopathy LUNGS: Breath sounds clear to auscultation bilaterally and equal. No wheezes rales or rhonchi. HEART: Regular rate and rhythm without murmurs ABDOMEN: Soft, nontender, normoactive bowel sounds. No guarding, no rebound. No masses appreciated. EXTREMITIES: Normal range of motion, no pitting or edema. No cyanosis. NEUROLOGICAL: No focal neurological deficits. Moves all extremities spontaneously and on command. PSYCH: Normal mood, normal affect. SKIN: Warm, Dry, normal turgor, no rashes or lesions noted. Course - Re-evaluation Re-evalutation: 11/23/16 23:36 Presentation of chest pain in an otherwise well appearing patient. Low clinical suspicion for ACS given clinical history, exam, EKG without ST elevations or depressions, and negative initial troponin. PE also seems unlikely given clinical history, absence of tachycardia or dyspnea. Wells score is 0. CXR without evidence of pneumothorax or pneumonia. No widened mediastinum. Aortic dissection also seems unlikely given history, symmetric pulses, CXR, and vitals. Will obtain a second troponin and reassess 11/24/16 01:05 Delta troponin remains negative. Patient remains without any chest pain or complaints at this time. She and her family are comfortable with discharge at this time.At this time will discharge with return precautions and follow-up recommendations. Verbal discharge instructions given a the bedside and opportunity for questions given. Medication warnings reviewed. Patient is in agreement with this plan and has verbalized understanding of return precautions and the need for primary care follow-up in the next 24-72 hours. - Vital Signs Vital signs: Temp Pulse Resp BP Pulse Ox 97.7 F 71 20 116/72 99 11/24/16 01:35 11/24/16 01:35 11/24/16 01:35 11/24/16 01:35 11/24/16 01:35 - Laboratory Result Diagrams: 11/23/16 21:20 11/23/16 21:20 Laboratory results interpreted by me: 11/23/16 21:20 Glucose 198 H Creatine Kinase 23 L - Diagnostic Test Radiology reviewed: Image reviewed, Reports reviewed Radiology results interpreted by me: 11/24/16 01:05 Chest x-ray: No acute infiltrates or wide mediastinum - EKG Interpretation by Me Additional EKG results interpreted by me: 11/24/16 01:06 Normal sinus rhythm. Rate 93. No ST elevations or depressions. QTc is 396 Discharge - Discharge Clinical Impression: Chest pain Qualifiers: Chest pain type: unspecified Qualified Code(s): R07.9 - Chest pain, unspecified Condition: Good Disposition: HOME, SELF-CARE Additional Instructions: You were seen today for chest pain. The exact cause of your pain is unclear. However, based on your cardiac enzyme testing, chest x-ray, and EKG it does not appear that it is from an immediately life-threatening cause at this time. Although your testing here is normal is critical that you follow-up with your primary care physician for continued evaluation of this chest pain and possible stress testing. I recommended you see your physician within the next 24-48 hours to be evaluated for consideration of a stress test. Please return to emergency department immediately if you have worsening of your chest pain, shortness of breath, vomiting, become unable to exert yourself due to pain or difficulty breathing, you pass out, or have any pain that radiates into your arms, jaw, or back. Please also return if you have any additional symptoms that are concerning to you. Referrals: NEFTALY LOPEZ MD [Primary Care Provider] - Follow up as needed
[2016-11-24 01:37] VITALS: BP 116/72
--- NOTE | 2016-11-24 11:06 | EKG REPORT ---
SEVERITY:- BORDERLINE ECG - SINUS RHYTHM BORDERLINE LEFT AXIS DEVIATION BORDERLINE T ABNORMALITIES, ANTERIOR LEADS : Confirmed by: Deny Blair 24-Nov-2016 11:06:05
== END 2016-11-24 01:52 | disposition home or self-care (01) ==
LOC: ER 20:02
DX: R07.9 Chest pain, unspecified (principal); I10 Essential (primary) hypertension; E11.9 Type 2 diabetes mellitus without complications; Z86.73 Personal history of transient ischemic attack (TIA), and cerebral infarction without residual deficits
CPT/HCPCS: 36415; 71010; 80053; 82550; 82553; 84484; 85025; 85610; 93005; 93010; 99285

== ENCOUNTER → 2017-08-29 | Outpatient (CLI) | payer MEDICARE, MEDICAID ==
--- NOTE | 2017-08-29 19:13 | WOMENS IMAGING REPORT ---
EXAM DESCRIPTION: 3D SCREENING MAMMO BILAT COMPLETED DATE/TIME: 08/29/2017 9:32 am REASON FOR STUDY: ROUTINE SCREENING;Z12.31 Z12.31 ENCNTR SCREEN MAMMOGRAM FOR MALIGNANT NEOPLASM OF YENY COMPARISON: 2015 TECHNIQUE: Standard craniocaudal and mediolateral oblique views of each breast recorded using digita l acquisition and breast tomosynthesis. LIMITATIONS: None. FINDINGS: Findings present which are benign by mammographic criteria. No suspicious masses, calcifi cations or architectural distortion. Pertinent benign findings: Benign breast parenchymal, skin, and vascular calcifications bilaterally Read with the assistance of CAD. .[facility] - R2 Cenova Version 1.3 .[facility] Imaging - R2 Cenova Version 1.3 .[facility] - R2 Cenova Version 2.4 .[facility] [place] - R2 Cenova Version 2.4 .[facility] - R2 Composite Layup Worker Version 9.2 Benign mammographic findings may include one or more of the following: Smooth masses, popcorn/rim/co arse calcifications, asymmetries, post-procedure changes, and lesions with long-standing stability. IMPRESSION: BENIGN MAMMOGRAPHIC FINDINGS. BIRADS 2 BREAST DENSITY: b. There are scattered areas of fibroglandular density. BIRAD: 2 BENIGN FINDING(S) RECOMMENDATION: RECOMMENDATION: ROUTINE SCREENING Please continue yearly bilateral screening tomosynthesis in August 2018 COMMENT: The patient has been notified of the results by letter per SA requirements. Additional no tification policies are in place for contacting patient with suspicious or incomplete findings. Quality ID #[id number]: The [employer] recommends an annual screening mammogram for women aged 40 years or over. This facility utilizes a reminder system to ensure that all patients receive reminder letters, and/or direct phone calls for appointments. This includes reminders for routine scr eening mammograms, diagnostic mammograms, or other Breast Imaging Interventions when appropriate. Th is patient will be placed in the appropriate reminder system. The [employer] (ACR) has developed recommendations for screening MRI of the breast s in certain patient populations, to be used in conjunction with mammography. Breast MRI surveillanc e may be appropriate for women with more than 20% lifetime risk of developing breast cancer as deter mined by genetic testing, significant family history of the disease, or history of mantle radiation f or Hodgkins Disease. ACR Practice Guidelines 2008. DBT Technology DBT is a type of tomographic mammography. With conventional mammography, overlapping breast tissue ma y make lesions difficult to detect, even with good compression. DBT uses an x-ray tube that rotates a round the breast, taking images at different angles. These images are then combined to create thin sl ices of the breast that the radiologist can view as a 3D reconstruction. The [employer] unit can perform full-field digital mammograms (2D imaging); or DBT (3D imaging); or both, in a combination mode that quickly performs both the mammogram and the tomosynthesis scan while the breast is still compressed. PQRS 6045F: Fluoroscopic imaging is not utilized for breast tomosynthesis. TECHNICAL DOCUMENTATION: FINDING NUMBER: (1) ASSESSMENT: (1) JOB ID: [id number] [employer]- All Rights Reserved
== END ==
LOC: WI 09:16
PROVIDERS: ATTEND Internal Medicine
DX: Z12.31 Encounter for screening mammogram for malignant neoplasm of breast (principal)
CPT/HCPCS: 77063; G0202; 77067

== ENCOUNTER 2017-10-13 22:47 | Emergency (ER) | payer MEDICARE, MEDICAID ==
[2017-10-13 23:15] VITALS: BP 114/62
--- NOTE | 2017-10-14 00:03 | ER Document Report ---
ED General - General Chief Complaint: Weakness Stated Complaint: GENERAL WEAKNESS Time Seen by Provider: 10/13/17 23:42 Notes: Patient is a 72-year-old female comes emergency department for chief complaint of weakness. Daughter states that she lives with her, states that since noon today she has had more difficulty walking around, she is complained of feeling tired, she had a episode of incontinence which is abnormal for her. No fever, vomiting, shortness of breath. Daughter states that she has a runny nose and that she is being given Benadryl for this. She received a 50 mg dose of Benadryl this morning and then also again this evening. Patient denies any pain complaints, shortness of breath, she states she just feels very tired. Past medical history of CVA, on Aggrenox, type 2 diabetes, hypertension. She has chronic right-sided weakness. TRAVEL OUTSIDE OF THE [place] 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 Review of Systems - Review of Systems Constitutional: See HPI EENT: No symptoms reported Cardiovascular: No symptoms reported Respiratory: No symptoms reported Gastrointestinal: No symptoms reported Genitourinary: No symptoms reported Female Genitourinary: No symptoms reported Musculoskeletal: No symptoms reported Skin: No symptoms reported Hematologic/Lymphatic: No symptoms reported Neurological/Psychological: See HPI Physical Exam - Vital signs Vitals: Temp Pulse Resp BP Pulse Ox 99.0 F 89 20 114/62 97 10/13/17 23:11 10/13/17 23:11 10/13/17 23:11 10/13/17 23:11 10/13/17 23:11 Interpretation: Normal - General General appearance: Alert, Other - Patient is drowsy although she is looking around and speaking spontaneously without needing to be aroused - HEENT Head: Normocephalic, Atraumatic Eyes: Other - Mildly dilated right pupil, questionably fixed, less movement of the right eye. Reportedly chronic per daughter. Conjunctiva: Normal Extraocular movements intact: Yes Eyelashes: Normal Pupils: PERRL Nasal: Normal Mouth/Lips: Normal Mucous membranes: Normal Pharynx: Normal Neck: Normal - Respiratory Respiratory status: No respiratory distress Chest status: Nontender Breath sounds: Normal. No: Decreased air movement, Wheezing Chest palpation: Normal - Cardiovascular Rhythm: Regular. No: Tachycardia Heart sounds: Normal auscultation, S1 appreciated, S2 appreciated Murmur: No - Abdominal Inspection: Normal Distension: No distension Bowel sounds: Normal Tenderness: Nontender. No: Tender, Guarding - Back Back: Normal, Nontender - Extremities General upper extremity: Normal inspection, Nontender, Normal color, Normal ROM , Normal temperature General lower extremity: Normal inspection, Nontender, Normal color, Normal ROM , Normal temperature, Normal weight bearing. No: Georgiana's sign - Neurological Neuro grossly intact: Yes Cognition: Normal Orientation: AAOx4 [place] Coma Scale Eye Opening: Spontaneous [place] Coma Scale Verbal: Oriented [place] Coma Scale Motor: Obeys Commands [place] Coma Scale Total: 15 Speech: Normal. No: Dysarthria Motor strength normal: LUE, LLE, RLE. No: RUE - Slightly weaker billet assembler on the right side, reportedly chronic per daughter Sensory: Normal - Psychological Associated symptoms: Normal affect, Normal mood - Skin Skin Temperature: Warm Skin Moisture: Dry Skin Color: Normal Course - Re-evaluation Re-evalutation: Suspicion that patient has medication related side effects although because of patient's medical history and symptoms a full workup will be obtained. She has no complaints other than feeling tired. She does appear very sluggish and somewhat sedated. Workup does not show any acute abnormalities. CAT scan of the head and chest x- ray are unremarkable. Urinalysis unremarkable. Labs generally unremarkable. On reexaminations patient is much more alert, much more energetic. Family is asking to go home. Discussed how patient is overmedicated, probably should not be taking Benadryl, she was given Claritin instead. Patient is to follow-up closely with her provider, discussed return precautions, they state understanding and agreement. - Vital Signs Vital signs: Temp Pulse Resp BP Pulse Ox 99.0 F 89 20 114/62 97 10/13/17 23:11 10/13/17 23:11 10/13/17 23:11 10/13/17 23:11 10/13/17 23:11 - Laboratory Result Diagrams: 10/14/17 01:13 10/14/17 01:13 Laboratory results interpreted by me: 10/14/17 10/14/17 10/14/17 01:13 01:13 03:00 Monocytes % 13.5 H Glucose 123 H AST 13 L Urine Glucose (UA) 150 H Urine Urobilinogen 4.0 H Discharge - Discharge Clinical Impression: Drowsiness Medication side effect Qualifiers: Encounter type: initial encounter Qualified Code(s): T88.7XXA - Unspecified adverse effect of drug or medicament, initial encounter Condition: Stable Disposition: HOME, SELF-CARE Additional Instructions: Workup and examination to this point do not show any concerning abnormalities. Her symptoms are most likely related to side effects of taking Benadryl. For her runny nose/allergic symptoms please give the prescribed Claritin instead. Follow-up with primary care. Return for any concerning symptoms including fever , vomiting, confusion, difficulty breathing, or any other concerning symptoms. Prescriptions: Loratadine 10 mg PO DAILY #30 tablet Referrals: CRISTIN GARVIN MD [Primary Care Provider] - Follow up as needed
[2017-10-14 01:24] LABS: ABSOLUTE BASOPHILS # (AUTO) 0.1 10^3/uL (0.0-0.2); ABSOLUTE EOSINOPHILS # (AUTO) 0.3 10^3/uL (0.0-0.6); ABSOLUTE LYMPHOCYTES (AUTO) 1.5 10^3/uL (0.5-4.7); ABSOLUTE MONOCYTES (AUTO) 1.3 10^3/uL (0.1-1.4); ABSOLUTE NEUT (AUTO) 6.7 10^3/uL (1.7-8.2); BASOPHILS % (AUTO) 0.8 % (0-2); EOSINOPHILS % (AUTO) 2.8 % (0-6); HEMATOCRIT 40.8 % (36.0-47.0); HEMOGLOBIN 14.3 g/dL (12.0-15.5); HGB HCT DIFFERENCE 2.1; LYMPHOCYTES % (AUTO) 15.5 % (13-45); MEAN CORPUSCULAR VOLUME 94 fl (80-97); MONOCYTES % (AUTO) 13.5 % (3-13); RED BLOOD COUNT 4.32 10^6/uL (3.72-5.28); RED CELL DISTRIBUTION WIDTH 13.6 % (11.5-14.0); SEGMENTED NEUTROPHILS % (AUTO) 67.4 % (42-78); WHITE BLOOD COUNT 9.9 10^3/uL (4.0-10.5)
--- NOTE | 2017-10-14 01:35 | RADIOLOGY REPORT (SQ) ---
EXAM DESCRIPTION: CT HEAD WITHOUT CLINICAL HISTORY: 72 years Female, decreased level of awareness COMPARISON: 10/29/2016. TECHNIQUE: No contrast. This exam was performed according to our departmental dose-optimization program, which includes automated exposure control, adjustment of the mA and/or kV according to patient size and/or use of iterative reconstruction technique. FINDINGS: Mild cerebral volume loss, moderate white matter microangiopathy, right temporal cranial resection, moderate encephalomalacia of the right temporal lobe, ex vacuo enlargement of the temporal horn of the right lateral ventricle, mild asymmetric enlargement of the right lateral ventricle, atherosclerosis, mild bilateral maxillary mucosal thickening, moderate bilateral ethmoid mucosal thickening. Stable. IMPRESSION: No acute findings.
[2017-10-14 01:53] LABS: ALANINE AMINOTRANSFERASE 25 U/L (9-52); ALKALINE PHOSPHATASE 69 U/L (38-126); ANION GAP 12 (5-19); ASPARTATE AMINO TRANSFERASE 13 U/L (14-36); BILIRUBIN,DIRECT 0.2 mg/dL (0.0-0.4); BILIRUBIN,TOTAL 0.5 mg/dL (0.2-1.3); BLOOD UREA NITROGEN 10 mg/dL (7-20); CALCIUM 9.7 mg/dL (8.4-10.2); CARBON DIOXIDE 29 mmol/L (22-30); CHLORIDE 103 mmol/L (98-107); CREATININE RESULT 0.69 mg/dL (0.52-1.25); GLUCOSE 123 mg/dL (75-110); POTASSIUM 4.5 mmol/L (3.6-5.0); SODIUM 143.6 mmol/L (137-145); TOTAL PROTEIN 6.7 g/dL (6.3-8.2)
--- NOTE | 2017-10-14 02:33 | RADIOLOGY REPORT (SQ) ---
EXAM DESCRIPTION: CHEST SINGLE VIEW CLINICAL HISTORY: 72 years, Female, weakness COMPARISON: 2.2.17 LIMITATIONS: None. FINDINGS: Moderate lung volume, clear parenchyma, normal cardiac silhouette, and intact bony thorax. IMPRESSION: No acute cardiopulmonary findings. 2011 [employer]- All Rights Reserved
[2017-10-14 03:53] LABS: APPEARANCE,URINE CLOUDY; BILIRUBIN,URINE NEGATIVE (NEGATIVE); GLUCOSE, URINE 150 mg/dL (NEGATIVE); KETONES,URINE NEGATIVE (NEGATIVE); LEUKOCYTE ESTERASE,URINE NEGATIVE (NEGATIVE); NITRITE,URINE NEGATIVE (NEGATIVE); PROTEIN,URINE NEGATIVE (NEGATIVE)
== END 2017-10-14 03:28 | disposition home or self-care (01) ==
LOC: ER 22:47
DX: T88.7XXA Unspecified adverse effect of drug or medicament, initial encounter (principal)
CPT/HCPCS: 36415; 70450; 71010; 80053; 81001; 84484; 85025; 99285

== ENCOUNTER 2017-10-15 23:45 | Emergency (ER) | payer MEDICARE, MEDICAID ==
[2017-10-15 23:57] VITALS: BP 142/70
--- NOTE | 2017-10-16 01:08 | ER Document Report ---
ED General - General Chief Complaint: S/S of Possible Stroke Stated Complaint: PAIN ON RIGHT SIDE Time Seen by Provider: 10/16/17 01:04 Notes: Patient is a 72-year-old female is brought in by her family because she has pain going from the right side of her neck down her right arm. Has a history of a stroke in October of last year. She also has a history of a tumor that affects weakness in her right eye as well as on her right side. Family says she is doing well today. They later down in bed. A little later she was yelling out that she had pain. She developed pain along the rest of her neck into her right arm. No recent fevers or infections. No recent illnesses. No other complaints at this time. TRAVEL OUTSIDE OF THE [place] 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 Review of Systems - Review of Systems Notes: My Normal Review Basic REVIEW OF SYSTEMS: CONSTITUTIONAL : Denies fever, chills, or sweats. Denies recent illness. EENT: Denies eye, ear, throat, or mouth pain or symptoms. Denies nasal or sinus congestion. Chest: No chest pain. RESPIRATORY: Denies cough, cold, or chest congestion. Denies shortness of breath, difficulty breathing, or wheezing. GASTROINTESTINAL: Denies abdominal pain. Denies nausea, vomiting, or diarrhea MUSCULOSKELETAL: Right sided neck and shoulder pain. SKIN: Denies rash or skin lesions. NEUROLOGICAL: Denies altered mental status or loss of consciousness. Denies headache. No new weakness or paralysis to either side.. Denies problems with gait or speech. Denies sensory or motor loss. ALL OTHER SYSTEMS REVIEWED AND NEGATIVE. Physical Exam - Vital signs Vitals: Temp Pulse Resp BP Pulse Ox 97.9 F 89 18 142/70 H 100 10/15/17 23:53 10/15/17 23:53 10/15/17 23:53 10/15/17 23:53 10/15/17 23:53 - Notes Notes: General Appearance: Well nourished, alert, cooperative, no acute distress, moderate obvious discomfort. Vitals: reviewed, See vital signs table. Head: no swelling or tenderness to the head Eyes: PERRL, EOMI, Conjuctiva clear Throat: No tonsillar inflammation, No airway obstruction, No lymphadenopathy Neck: No midline tenderness to palpation of the neck. Patient has pain to palpation of the right trapezius muscle and right cervical paraspinal musculature. Pain continues around the right scapula and into the right shoulder. Pain with range of motion of the right shoulder. Lungs: No wheezing, No rales, No rhonci, No accessory muscle use, good air exchange bilaterally. Heart: Normal rate, Regular rythm, No murmur, no rub Extremities: strength 5/5 in all extremities, good pulses in all extremities, pain with range of motion of the right shoulder. No pain with range of motion of elbow hand or wrist. Some pain to palpation of the proximal right humerus and shoulder to palpation. No redness or swelling. No edema. Skin: warm, dry, appropriate color, no rash Neuro: speech clear, oriented x 3, normal affect, responds appropriately to questions. No new focal weakness or numbness on exam that is new from patient' s baseline. Patient has some drooping of the right eye which is chronic due to previous stroke. No new cranial nerve deficits. Course - Re-evaluation Re-evalutation: 10/16/17 06:37 Patient is feeling much improved with her Tylenol. She looks well. Her pain seems very muscular to her on exam and that it is worse with movement and palpation. Feel that she is safe to be discharged home. She has no new focal deficits. No evidence of a stroke. Patient will be discharged home but is encouraged to return to ER if she has fevers, worsening pain, with the family's any further concerns. Family patient agree with plan and she was discharged home. Dictation of this chart was performed using voice recognition software; therefore, there may be some unintended grammatical errors. - Vital Signs Vital signs: Temp Pulse Resp BP Pulse Ox 97.9 F 81 16 142/70 H 99 10/15/17 23:53 10/16/17 03:59 10/16/17 03:59 10/15/17 23:53 10/16/17 03:59 Discharge - Discharge Clinical Impression: Right arm pain Strain of right trapezius muscle Qualifiers: Encounter type: initial encounter Qualified Code(s): S46.811A - Strain of other muscles, fascia and tendons at shoulder and upper arm level, right arm, initial encounter Condition: Good Disposition: HOME, SELF-CARE Additional Instructions: I suspect that Mrs. Conti is having strain and spasm into her right trapezius muscle and the paracervical muscles on the right side which is causing pain going into her right arm. This sometimes happens just from laying in an awkward position in bed. Tylenol and Motrin are an appropriate treatment. Warm compresses is also an appropriate treatment. Please do these as needed for pain. She should return to the ER immediately if she has worsening pain, weakness or numbness into the arm, or severe headaches or fevers. Referrals: CRISTIN GARVIN MD [Primary Care Provider] - 10/18/17
[2017-10-16] MEDS ORDERED: ACETAMINOPHEN 325 MG TABLET PO ONE (01:34)
--- NOTE | 2017-10-16 04:19 | RADIOLOGY REPORT (SQ) ---
EXAM DESCRIPTION: SHOULDER RIGHT 2 OR MORE VIEWS CLINICAL HISTORY: pain COMPARISON: None. FINDINGS: 3 views of the right shoulder. No acute fracture or dislocation. Normal osseous mineralization. No fractures of the right-sided ribs that are visualized. No right-sided pneumothorax. IMPRESSION: No acute fracture or dislocation.
--- NOTE | 2017-10-16 04:19 | RADIOLOGY REPORT (SQ) ---
EXAM DESCRIPTION: CT CERVICAL SPINE WITHOUT CLINICAL HISTORY: pain COMPARISON: None available TECHNIQUE: Axial CT of the cervical spine obtained without contrast. FINDINGS: Alignment of the cervical spine is maintained without evidence of subluxation. The atlantoaxial, atlantodental, and occipitoatlantal intervals are preserved. No fracture identified. Vertebral body height preserved. Prevertebral soft tissues are unremarkable. Mild to moderate loss of intervertebral disc height at C3/4 through C6/7 with endplate spondylosis and uncovertebral spurring. Minimal facet arthropathy. No significant central canal nor neural foraminal osseous narrowing. Visualized skull base is intact. No fracture of the visualized facial bones. Visualized mastoid air cells and paranasal sinuses are well aerated. Visualized thyroid is unremarkable. No cervical lymphadenopathy. No pneumothorax in the visualized lung apices. Atherosclerotic calcification. DLP: 206.61 mGy-cm IMPRESSION: 1. No acute fracture or subluxation of the cervical spine. This exam was performed according to our departmental dose-optimization program, which includes automated exposure control, adjustment of the mA and/or kV according to patient size and/or use of iterative reconstruction technique.
--- NOTE | 2017-10-16 04:19 | RADIOLOGY REPORT (SQ) ---
EXAM DESCRIPTION: HUMERUS RIGHT CLINICAL HISTORY: pain COMPARISON: None. FINDINGS: 2 views of the right humerus. No acute fracture or dislocation. Normal osseous mineralization. IMPRESSION: No acute fracture or dislocation.
== END 2017-10-16 03:59 | disposition home or self-care (01) ==
LOC: ER 23:45
DX: S29.012A Strain of muscle and tendon of back wall of thorax, initial encounter (principal); X58.XXXA Exposure to other specified factors, initial encounter; M54.2 Cervicalgia; M79.601 Pain in right arm; M25.511 Pain in right shoulder; I10 Essential (primary) hypertension; E11.9 Type 2 diabetes mellitus without complications; I69.392 Facial weakness following cerebral infarction
CPT/HCPCS: 99284; 73060; 73030; 72125; A9270